=== PATIENT | female | born 1960 | race Caucasian/White ===

== ENCOUNTER 2024-12-27 10:41 | Outpatient (AMB) | payer BC, SELFPAY ==
--- NOTE | 2024-12-27 11:18 | MHC.OFFVIS ---
Intake Visit Reasons: right arm weakness Allergies No Known Allergies (No Known Allergies*) Allergy (Unverified 02/17/20 18:58) Medication List - Last Reconciled 12/27/24 by Lynne Flannery MD amlodipine 2.5 mg PO DAILY escitalopram oxalate 20 mg PO DAILY ibuprofen 800 mg PO Q8H PRN trazodone 25 mg (1/2 x 50 mg) PO DAILY HPI Comments Details: 64 years old right-handed woman with past medical history of melanoma resection from her right biceps area, hypertension, who previously had been under stress related to her daughter situation, with chronic difficulty sleeping at night because of which she has started to watch television in her bedroom, was prescribed gabapentin to improve her sleep but it has not helped, was here with complain of right arm discomfort or cramping and sometime difficulty finding the right word when she was speaking. Right arm discomfort was like a cramp or an ache and somewhat noted more if she would move her arm in a particular way. There was no associated neck pain or any significant tingling and numbness. As far as difficulty finding the right word is concerned, she has not noted any such problem at work. She worked in a bank. She has noted more when she was at home and at rest. She would find herself sometime sleepy during daytime and would tried to treated with exercise and would herself not to sleep. [facility] Medical History (Updated 12/27/24 @ 11:42 by Lynne Flannery MD) Right arm weakness Hypertension Seborrheic keratosis Chronic neck pain Mild episode of recurrent depressive disorder Generalized anxiety disorder Osteopenia DDD (degenerative disc disease), cervical Review of Systems Const Details: Constitutional:?No fever, chills, fatigue, weight loss, or night sweats. HEENT:?No headache, vision changes, hearing loss, nasal congestion, sore throat. Cardiovascular:?No chest pain, palpitations, orthopnea, PND, or leg swelling. Respiratory:?No cough, shortness of breath, wheezing, or hemoptysis. Gastrointestinal:?No nausea, vomiting, abdominal pain, diarrhea, or constipation. Genitourinary:?No dysuria, frequency, incontinence, or hematuria. Musculoskeletal:?No joint pain, stiffness, weakness, or muscle aches. Neurological:? Sometime difficulty finding the right word Psychiatric:?No anxiety, depression, mood swings, sleep disturbance, or hallucinations. Endocrine:?No heat/cold intolerance, polydipsia, polyuria, or hair/skin changes. Hematologic/Lymphatic:?No easy bruising, bleeding, or lymphadenopathy. Integumentary (Skin):?No rash, lesions, itching, or color changes. Allergic/Immunologic:?No seasonal allergies, hives, or recurrent infections. Physical Exam Neuro Other: Mental Status: Alert and oriented to person, place, and time. Normal attention. Normal spontaneous speech, fluency, and comprehension. No obvious issues with mood and memory. Affect is mildly anxious. Cranial Nerves: CN II: Visual crandall full to confrontation, visual acuity intact. CN III, IV, : Pupils equal, round, reactive to light and accommodation. Extraocular movements are normal. CN V: Facial sensation is normal. CN VII: Facial movements symmetrical. CN VIII: Hearing intact to bedside conversation is normal. CN IX, X: Palate elevates symmetrically. CN XI: Shoulder shrug and head turn symmetrical. CN XII: Tongue midline without atrophy or fasciculations. Motor: Bulk and tone normal in all extremities. No significant muscle weakness in arms and legs. No drift. Reflexes: Deep tendon reflexes 1+ and symmetric. Plantar response down-going bilaterally. Coordination: Msedwl-en-mtxr and dzkz-qn-crob testing normal. No dysmetria. Gait and Station: No obvious gait abnormality. No ataxia or instability. Extrapyramidal: Full facial expressions and blinking. No rigidity. Movements are appropriate with no tremor or abnormality. Speech: Normal; no dysarthria or tremor. Assessment & Plan Assessment & Plan (1) Poor sleep hygiene: Code(s): Z72.821 - Inadequate sleep hygiene Category: Medical (2) Anxiety disorder: Code(s): F41.9 - Anxiety disorder, unspecified Category: Medical Qualifiers: Anxiety disorder type: other anxiety disorder Qualified Code(s): F41.8 - Other specified anxiety disorders (3) Arm pain, right: Code(s): M79.601 - Pain in right arm Category: Medical (4) Insomnia: Code(s): G47.00 - Insomnia, unspecified Category: Medical Qualifiers: Insomnia type: psychophysiologic Qualified Code(s): F51.04 - Psychophysiologic insomnia (5) MCI (mild cognitive impairment): Code(s): G31.84 - Mild cognitive impairment of uncertain or unknown etiology Category: Medical Plan Impression: a: MCI causing mild word finding difficulty b: Right arm pain, probably musculoskelatal c: Anxiety disorder d: Poor sleep hygiene e: Insomnia Rec: a: Sleep hygiene b: DC gabapentin c: Try trazodone 25mg at night d: Take Escitaloprim in am e: EMG/NCS R arm f: MRI brain WO g: B12/folate/TSH Orders: Orders TSH reflex Free T4 Today G31.84 - Mild cognitive impairment of uncertain or unknown etiology NE nerve conduction velocity Today M79.601 - Pain in right arm NE electromyogram (EMG) Today M79.601 - Pain in right arm MR head/brain wo con Today G31.84 - Mild cognitive impairment of uncertain or unknown etiology Vitamin B12 and Folate Today G31.84 - Mild cognitive impairment of uncertain or unknown etiology Medications: New trazodone 25 mg (1/2 x 50 mg) PO DAILY 30 tabs 0RF Coding Level of Care Code Tele New Pt Level 5 (65042) Diagnoses Poor sleep hygiene Z72.821 Other specified anxiety disorders F41.8 Anxiety disorder type: other anxiety disorder Arm pain, right M79.601 Psychophysiological insomnia F51.04 Insomnia type: psychophysiologic MCI (mild cognitive impairment) G31.84
--- OUTSIDE RECORDS SUMMARY | 2024-12-27 11:54 | XMS_ITS ---
Author Name [facility] Organization Unknown Care Team Organization Name Specialty Phone Email Start Date End Da te [facility] [place] Owen Solo Primary Care 04/09/2022 01/19/20 24
--- OUTSIDE RECORDS SUMMARY | 2024-12-27 11:54 | XMS_ITS | Clinical Summary ---
Author Organization [facility] [employer] Address [address] [facility] [place] [address] Care Team Providers Care Gas Tender Name Role Phone Ángela Cabral MD Primary Care Provider Immunizations Name Administration Dates Next Due Shingrix Recombinant Dose 07/02/2020 Social History Tobacco Use Types Packs/Day Years Used Date Smoking Tobacco: Never Assessed Comments Unknown Sex and Gender Information Value Date Recorded Sex Assigned at Not on file Legal Sex Female 4:28 PM EST Gender Identity Not on file Sexual Orientation Not on file Plan of Treatment Health Maintenance Due Date Last Done Comments Colorectal Cancer: COLONOSCO PY Screening every 10 yrs (or Modifier) 1962 Depression: Screening Annual ly using PHQ-2/9 in Adults 18 yrs or above (or HM Modifier)([facility]) 1980 Hepatitis C Virus Infection in Adolescents and Adults: Screening (or Modifier) ([facility]) 1980 [facility] Screening Reminder: Ebony garay for all adults ([facility]) 1980 Tobacco Smoking Cessation: i n Adults excluding Women: Behavioral and Pharmacotherapy Interventions ([facility]) 1980 DTaP/Tdap/Td Vaccines ([facility]) (1 - Tdap) 1981 Cervical Cancer Screenin 1-65 yrs of age (or Modifier) 1983 Cervical Cancer Screening: P ap every 3 yrs pts age 21-65 1983 Cervical Cancer: Pap Screeni ng with Modifier timing ([facility]) 1983 Cervical Cancer: hrHPV alone or with cotesting Pap for Pts 30-65yrs screening every 5yrs ([facility]) 1983 Colorectal Cancer Screening 45 -75 Yrs (or HM Modifier) 2007 Colorectal Cancer: FLEXIBLE SIGMOIDOSCOPY Screening every 5 yrs 2007 Colorectal Cancer: Fecal Imm unochemical Test (FIT) [facility]ually [facility] 2007 Colorectal Cancer: High-sens itivity gFOBT Screening Annually [facility] 2007 Colorectal Cancer: Stool Col oguard Screening every 3 yrs 2007 Colorectal Cancer:CT Colonog elaine Screening every 5 yrs 2007 Breast Cancer: Screening Ebony ually age 50-74 yrs (or HM Modifier)([facility]) 2012 Pneumococcal Vaccination Scr eening: Patients 50+ yrs of age ([facility]) (1 of 1 - PCV) 2012 Zoster/Shingles Vaccine Seri es Screening: Adults aged 18+ yrs (or HM Modifiers)([facility]) (2 of 2) 08/27/2020 07/02/2020 COVID-19 Vaccine Screening: Initial Series and Booster Status ([facility]) ( - 2023- season) 2024 Flu Vaccination: Yearly for ages 18mos through 64 years (or Modifier)([facility]) 12/31/2024 RSV Vaccines (1 - 1-dose 75+ series) 2037 [employer] Not on file Insurance [facility] Care Teams Gas Tender Relationship Specialty Start Date End Date Ángela Cabral MD [address] [place] [address] PCP - General Internal Medicine 07/02/20
--- OUTSIDE RECORDS SUMMARY | 2024-12-27 11:54 | XMS_ITS | Encounter Summary ---
Author Organization [employer] [place] [address] Care Team Providers Care Tile Sprayer Name Role Phone Owen Solo MD Primary Care Provider Encounter Details Date Type Department Care Team (Late st Contact Info) Description 10/27/2024 Lab Requisition [facility] - Main Lab [address] [facility] [place] [phone] Owen Solo MD [address] [place], [place] [id number] Other hemoglobinopathies (CMS/HCC V24) Social History Tobacco Use Types Packs/Day Years Used Date Smoking Tobacco: Never Smokeless Tobacco: Never Alcohol Use Standard Drinks/Week Comments Yes 0 (1 standard drink = 0.6 oz pur e alcohol) Comments No Sex and Gender Information Value Date Recorded Sex Assigned at Not on file Legal Sex Female 4:25 AM EST Gender Identity Not on file Sexual Orientation Not on file documented as of this encounter Plan of Treatment Not on file documented as of this encounter Procedures Procedure Name Priority Date/Time Associated Diagnosis Comments IRON AND TIBC Routine 10/27/2024 4:20 PM EDT Other hemoglobinopathies (CMS/HCC V24) FERRITIN Routine 10/27/2024 4:20 PM EDT Other hemoglobinopathies (CMS/HCC V24) documented in this encounter Results * Ferritin (10/27/2024 4:20 PM EDT) Ferritin 67 8 - 252 ng/mL LAB CHEMISTRY METHOD 10/27/2024 5:41 PM EDT [facility] Blood Venous blood specimen / Unknown 10/27/2024 4:20 PM EDT 10/27/2024 4:59 PM EDT us Owen Solo MD LAB BLOOD ORDERABLES Final Res ult [facility] [address] [place] [address], [place] [phone] * Iron and TIBC (10/27/2024 4:20 PM EDT) Iron 99 40 - 150 mcg/dL LAB CHEMISTRY METHOD 10/27/2024 5:41 PM EDT [facility] TIBC 403 250 - 450 mcg/dL LAB CHEMISTRY METHOD 10/27/2024 5:41 PM EDT [facility] Iron Saturation 25 15 - 50 % LAB CHEMISTRY METHOD 10/27/2024 5:41 PM EDT [facility] Blood Venous blood specimen / Unknown 10/27/2024 4:20 PM EDT 10/27/2024 4:59 PM EDT us Owen Solo MD LAB BLOOD ORDERABLES Final Res ult [facility] [address] [place] [address], [place] [phone] documented in this encounter Visit Diagnoses Diagnosis Other hemoglobinopathies (CMS/HCC V24) Other hemoglobinopathies documented in this encounter Care Teams Tile Sprayer Relationship Specialty Start Date End Date Owen Solo MD [address] [place] [id number] PCP - General Internal Medicine 06/16/20 documented as of this encounter
== END 2024-12-27 12:51 | disposition home or self-care (01) ==
LOC: HO.HSM 10:41
PROVIDERS: PCP Internal Medicine; Visit Provider Psychiatry & Neurology Neurology
DX: F41.8 Other specified anxiety disorders (principal); M79.601 Pain in right arm; F51.04 Psychophysiologic insomnia; G31.84 Mild cognitive impairment of uncertain or unknown etiology
CPT/HCPCS: 99204

== ENCOUNTER 2024-12-27 10:41 | Outpatient (REF) | payer BC, SELFPAY ==
[2024-12-27 13:18] LABS: Folate 15.1 ng/mL (> or = 4.0); Vitamin B12 745 pg/mL (200-900)
== END 2024-12-27 10:42 | disposition home or self-care (01) ==
LOC: HO.LAB 10:41
PROVIDERS: PCP Internal Medicine; Visit Provider Psychiatry & Neurology Neurology
DX: M79.601 Pain in right arm (principal); G31.84 Mild cognitive impairment of uncertain or unknown etiology; F41.8 Other specified anxiety disorders; F51.04 Psychophysiologic insomnia; I10 Essential (primary) hypertension; Z79.899 Other long term (current) drug therapy
CPT/HCPCS: 36415; 82607; 82746; 84443

== ENCOUNTER 2025-01-18 10:06 | Outpatient (REF) | payer BC, SELFPAY ==
--- NOTE | ~2025-01-18 | MR_ITS ---
EXAMINATION: MR BRAIN WITHOUT CONTRAST CLINICAL INFORMATION: Mild cognitive impairment of uncertain etiology. COMPARISON: None available. TECHNIQUE: MRI of the brain was obtained using routine sequences without contrast. FINDINGS: No restricted diffusion. Bilateral, symmetric, patchy, hyperintense T2 FLAIR signal center within the basal ganglia/putamen. No associated susceptibility or restricted diffusion. Patchy hyperintense T2 FLAIR signal without susceptibility or restriction centered in the landry. Ram-white matter differentiation is normal. No acute intracranial hemorrhage, mass effect, midline shift, hydrocephalus or herniation. No signal abnormality or volume loss in the hippocampi. Sellar/suprasellar region is normal. Craniocervical junction demonstrates normal position of the cerebellar tonsils. Flow-void signal within the main cerebral vessels is normal. Hyperintense T2 FLAIR signal in the left mastoid air cells. MR/MR head/brain wo con IMPRESSION: Concerning for neurodegenerative disorders versus lymphoma versus Karlos's disease versus metabolic encephalopathy and is likely poisoning Electronically signed by: Sabino Montano MD 01/18/2025 11:16 AM EDT
--- OUTSIDE RECORDS SUMMARY | 2025-01-18 11:20 | XMS_ITS | Clinical Summary ---
Author Organization [facility] [employer] Address [address] [facility] [place] [address] Care Team Providers Care Seo Expert Name Role Phone Ángela Cabral MD Primary [...] Adults 18 yrs or above (or HM Modifier)([facility]) 1980 Hepatitis C Virus Infection in Adolescents and Adults: Screening (or Modifier) ([facility]) 1980 [facility] Screening Reminder: Ebony garay for all adults ([facility]) 1980 Tobacco Smoking Cessation: i n Adults excluding Women: Behavioral and Pharmacotherapy Interventions ([facility]) 1980 DTaP/Tdap/Td Vaccines ([facility]) (1 - Tdap) 1981 Cervical Cancer Screenin 1-65 yrs of age (or Modifier) 1983 Cervical Cancer Screening: P ap every 3 yrs pts age 21-65 1983 Cervical Cancer: Pap Screeni ng with Modifier timing ([facility]) 1983 Cervical Cancer: hrHPV alone or with cotesting Pap for Pts 30-65yrs screening every 5yrs ([facility]) 1983 Colorectal Cancer Screening 45 -75 Yrs (or HM Modifier) 2007 Colorectal Cancer: FLEXIBLE SIGMOIDOSCOPY Screening every 5 yrs 2007 Colorectal Cancer: Fecal Imm unochemical Test (FIT) [facility]ually [facility] 2007 Colorectal Cancer: High-sens itivity gFOBT Screening Annually [facility] 2007 Colorectal Cancer: Stool Col oguard Screening every 3 yrs 2007 Colorectal Cancer:CT Colonog elaine Screening every 5 yrs 2007 Breast Cancer: Screening Ebony ually age 50-74 yrs (or HM Modifier)([facility]) 2012 Pneumococcal Vaccination Scr eening: Patients 50+ yrs of age ([facility]) (1 of 1 - PCV) 2012 Zoster/Shingles Vaccine Seri es Screening: Adults aged 18+ yrs (or HM Modifiers)([facility]) (2 of 2) 08/27/2020 07/02/2020 COVID-19 Vaccine Screening: Initial Series and Booster Status ([facility]) ( - 2023- season) 2024 Flu Vaccination: Yearly for ages 18mos through 64 years (or Modifier)([facility]) 12/31/2024 RSV Vaccines (1 - 1-dose 75+ series) 2037 [employer] Not on file Insurance [facility] Care Teams Seo Expert Relationship Specialty Start Date End Date Ángela Cabral MD [address] [place] [address] PCP - General Internal Medicine 07/02/20
--- OUTSIDE RECORDS SUMMARY | 2025-01-18 11:20 | XMS_ITS | Encounter Summary ---
Author Organization [place] [address] Care Team Providers Care Operator And Truck Driver Name Role Phone Owen Solo MD Primary Care Provider [phone] Encounter Details Date Type Department Care Team (Late st Contact Info) Description 10/27/2024 Lab Requisition [facility] - Main Lab [address] [facility] [place] [place] [phone] Owen Solo MD [address] [place], [place] [phone] Other hemoglobinopathies (CMS/HCC V24) Social History Tobacco [...] LAB CHEMISTRY METHOD 10/27/2024 5:41 PM EDT [facility] Blood Venous blood specimen / Unknown 10/27/2024 4:20 PM EDT 10/27/2024 4:59 PM EDT us Owen Solo MD LAB BLOOD ORDERABLES Final Res ult [facility] [address] [place] [address], [place] [phone] * Iron and TIBC (10/27/2024 4:20 PM EDT) Iron 99 40 - 150 mcg/dL LAB CHEMISTRY METHOD 10/27/2024 5:41 PM EDT [facility] TIBC 403 250 - 450 mcg/dL LAB CHEMISTRY METHOD 10/27/2024 5:41 PM EDT [facility] Iron Saturation 25 15 - 50 % LAB CHEMISTRY METHOD 10/27/2024 5:41 PM EDT [facility] Blood Venous blood specimen / Unknown 10/27/2024 4:20 PM EDT 10/27/2024 4:59 PM EDT us Owen Solo MD LAB BLOOD ORDERABLES Final Res ult [facility] [address] [place] [address], [place] [phone] documented in this encounter Visit Diagnoses Diagnosis Other hemoglobinopathies (CMS/HCC V24) Other hemoglobinopathies documented in this encounter Care Teams Operator And Truck Driver Relationship Specialty Start Date End Date Owen Solo MD [address] [place] [id number] PCP - General Internal Medicine 06/16/20 documented as of this encounter
== END 2025-01-18 10:07 | disposition home or self-care (01) ==
LOC: HO.MRI 10:06
PROVIDERS: PCP Internal Medicine; Visit Provider Psychiatry & Neurology Neurology
DX: G31.84 Mild cognitive impairment of uncertain or unknown etiology (principal)
CPT/HCPCS: 70551

== ENCOUNTER → 2025-01-18 10:14 | Outpatient (BNV) | payer BC, SELFPAY | PROVIDERS: PCP Internal Medicine; Visit Provider Radiology Diagnostic Radiology | DX: G31.84 Mild cognitive impairment of uncertain or unknown etiology (principal) | CPT/HCPCS: 70551 ==

== ENCOUNTER 2025-02-24 08:43 | Outpatient (AMB) | payer BC, SELFPAY ==
--- NOTE | 2025-02-24 08:45 | A.OFFVIS_ITS ---
Intake Visit Reasons: after MRI/NCV Allergies No Known Allergies (No Known Allergies*) Allergy (Unverified 02/17/20 18:58) HPI Comments Details: The patient is a 64-year-old female presenting with cognitive difficulties and abnormal brain MRI findings. She reports insomnia and uses television as a sleep aid. There is a history of essential hypertension and reported melanoma. She has been under significant stress related to her daughter's situation and sometimes experiences difficulty in continuing sentences, indicative of mild cognitive issues. She reports a family history of MS in her sisters. Her brain MRI has revealed abnormal white matter changes, raising concerns regarding potential exposure to toxins or anoxia. However, no such historical exposure is confirmed after evaluation. Thorough exploration of potential exposure to carbon monoxide and heavy metals returned no relevant history. The etiology of these abnormalities remains undetermined, requiring ongoing investigation and monitoring. [facility] Medical History (Updated 02/24/25 @ 08:50 by Lynne Flannery MD) Right arm weakness Hypertension Seborrheic keratosis Chronic neck pain Mild episode of recurrent depressive disorder Generalized anxiety disorder Osteopenia DDD (degenerative disc disease), cervical Review of Systems Const Details: - General: Denies recent severe illness or ICU admission. - Cardiovascular: Reports history of high blood pressure. - Neurologic: Reports cognitive difficulties, difficulty finishing sentences, denies any major motor deficits, headaches, or seizures. Denies binge drinking, smoking, and any recent notable neurological infections. - Psychological: Reports chronic stress related to family situation, denies history of self-harm or poisoning attempts. Physical Exam Neuro Other: Mental Status: Alert and oriented to person, place, and time. Normal attention. Normal spontaneous speech, fluency, and comprehension. No obvious issues with mood and memory. Affect is appropriate. Cranial Nerves: CN II: Visual crandall full to confrontation, visual acuity intact. CN III, IV, : Pupils equal, round, reactive to light and accommodation. Extraocular movements are normal. CN V: Facial sensation is normal. CN VII: Facial movements symmetrical. CN VIII: Hearing intact to bedside conversation is normal. CN IX, X: Palate elevates symmetrically. CN XI: Shoulder shrug and head turn symmetrical. CN XII: Tongue midline without atrophy or fasciculations. Motor: Bulk and tone normal in all extremities. No significant muscle weakness in arms and legs. No drift. Reflexes: Deep tendon reflexes 2+ and symmetric. Plantar response down-going bilaterally. Coordination: Evfzmc-vv-wwfq and kmpw-ce-ifng testing normal. No dysmetria. Gait and Station: No obvious gait abnormality. No ataxia or instability. Extrapyramidal: Full facial expressions and blinking. No rigidity. Movements are appropriate with no tremor or abnormality. Speech: Normal; no dysarthria or tremor. Assessment & Plan Assessment & Plan (1) Encephalopathy: Comment: MRI brain WO at [facility] in Jan 2025: significant b/l putamenal hyperintensity, and pontine hyperintensity Code(s): G93.40 - Encephalopathy, unspecified Category: Medical Plan 64 years old woman with no significant past medical history other than having some stress and life but in particular no history of any significant exposure to toxin, alcohol, or a poison such as carbon monoxide, and also without history of any serious illness requiring ICU admission or serious viral illness, came to see me for rather mild cognitive difficulties and right arm numbness. Her MRI of brain is quite remarkable revealing significant FLAIR hyperintensities in landry and bilateral putaminal area. This kind of pattern is usually seen with exposure to toxins or anoxia. Potential there some other causes and I am checking some of them. I am not sure if I would be able to find the exact cause. Otherwise, physically speaking, she was doing well and my advice was to continue with life. No particular medicine was prescribed at this time. Orders: Orders Heavy Metals Screen 24H Urine Today G93.40 - Encephalopathy, unspecified Ceruloplasmin Today G93.40 - Encephalopathy, unspecified Copper, plasma Today G93.40 - Encephalopathy, unspecified Copper, 24hr Urine Today G93.40 - Encephalopathy, unspecified Coding Level of Care Code Est Pt Level 5 (18252) Diagnoses Encephalopathy G93.40
--- OUTSIDE RECORDS SUMMARY | 2025-02-24 09:18 | XMS_ITS | Encounter Summary ---
Author Organization [employer] [place] [address] Care Team Providers Care Website Programmer Name Role Phone Owen Solo MD Primary Care Provider [phone] Encounter Details Date Type Department Care Team (Late st Contact Info) Description 10/27/2024 Lab Requisition [facility] - Main Lab [address] [facility] [place] [phone] Owen Solo MD [address] [place], [place] [phone] Other hemoglobinopathies (CMS/HCC V24) Social History Tobacco [...] LAB CHEMISTRY METHOD 10/27/2024 5:41 PM EDT [facility] Blood Venous blood specimen / Unknown 10/27/2024 4:20 PM EDT 10/27/2024 4:59 PM EDT us Owen Solo MD LAB BLOOD ORDERABLES Final Res ult [facility] [address] [place] [address], [place] [phone] * Iron and TIBC (10/27/2024 4:20 PM EDT) Iron 99 40 - 150 mcg/dL LAB CHEMISTRY METHOD 10/27/2024 5:41 PM EDT [facility] TIBC 403 250 - 450 mcg/dL LAB CHEMISTRY METHOD 10/27/2024 5:41 PM EDT [facility] Iron Saturation 25 15 - 50 % LAB CHEMISTRY METHOD 10/27/2024 5:41 PM EDT [facility] Blood Venous blood specimen / Unknown 10/27/2024 4:20 PM EDT 10/27/2024 4:59 PM EDT us Owen Solo MD LAB BLOOD ORDERABLES Final Res ult [facility] [address] [place] [address], [place] [phone] documented in this encounter Visit Diagnoses Diagnosis Other hemoglobinopathies (CMS/HCC V24) Other hemoglobinopathies documented in this encounter Care Teams Website Programmer Relationship Specialty Start Date End Date Owen Solo MD [address] [place] [id number] PCP - General Internal Medicine 06/16/20 documented as of this encounter
--- OUTSIDE RECORDS SUMMARY | 2025-02-24 09:18 | XMS_ITS | Clinical Summary ---
Author Organization [address] [facility] Address [address] [place] [address] Phone Care Team Providers Care Top Knitter Name Role Phone Owen Solo MD Primary Care Provider [phone] Allergies No known active allergies Medications CALCIUM-MAGNESIU M-ZINC ORAL Take by mouth daily. Active MAGNESIUM ORAL Take by mouth. Active escitalopram (LEXAPRO) 20 mg tablet TAKE 1 TABLET (20 MG TOTAL) BY MOUTH ONE TIME EACH DAY 90 tablet 1 10/12/2024 Active amLODIPine (NORVASC) 2.5 mg tablet Take 1 tablet (2.5 mg total) by mouth 1 (one) time each day. 90 tablet 1 10/12/2024 Active gabapentin (NEURONTIN) 600 mg tablet TAKE 1 TABLET BY MOUTH AT BEDTIME. 90 tablet 12/08/2024 Active ibuprofen (ADVIL,MOTRIN) 800 mg tablet TAKE 1 TABLET BY MOUTH EVERY 8 HOURS NEEDED FOR PAIN FOR UP TO 60 DAYS. 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 (CMS/HCC V24) 11/28/2020 Chronic neck pain 02/08/2019 DDD (degenerative disc disease), cervical 2018 Seborrheic keratosis 03/25/2017 HTN (hypertension) 09/06/2014 Encounters Date Type Department Care Team Description 12/20/2024 Telephone Internal Medicine - [address] [phone] Owen Solo MD 12/17/2024 3:15 PM EDT Office Visit Internal Medicine - [address] [phone] Waqar Davila NP Right arm weakness (Primary Dx) 12/15/2024 Telephone Internal Medicine - [address] [phone] Owen Solo MD from Last 3 Months Immunizations Name Administration Dates Next Due Influenza Quadravalent, MDCK , 0.5ml, preservative free (Flucelvax) 6mo and older 02/08/2019 Influenza Quadravalent, MDCK , 0.5ml, with preservative (Flucelvax) 6mo and older 03/25/2017 Influenza trivalent, 0.5mL, preservative free (Fluarix; FluLaval; Fluzone) ages 6mo and older (Afluria) 3 years and older 03/09/2024 Influenza, Unspecified 07/02/2023,04/17/2022 Tdap Tetanus diptheria acell ular pertussis (Boostrix; Adacel) 7yo and older 11/27/2015 Zoster recombinant (Shingrix) 19yo and older ,02/18/2020 Surgical History Surgery Date Site/Laterality Comments KNEE ARTHROSCOPY W/ DEBRIDEMENT 2010 Left PROCEDURE: AK ARTHRS KNEE DEBRIDEMENT/SHAVING ARTCLR CRTLG; COMMENT: Dr Silvestre Doctor TUBAL LIGATION PROCEDURE: HISTORICAL TUBAL LIGATION COLONOSCOPY 04/11/2016 PROCEDURE: HISTORICAL COLONOSCOPY; COMMENT: diverticulosis; otherwise neg/oncomplete to 35 cm. Medical History Medical History Date Comments Uterine polyp DX:Uterine polyp History of colonoscopy 04/11/2016 DX:Histor y of colonoscopy; COMMENT: Difficult/incomplete colonoscopy 04/11/2016 related to diverticulosis and tortuosity in the sigmoid colon. Consider FIT testing going forward. HTN (hypertension) 09/06/2014 DX:HTN (hyper tension) Melanoma in situ of left upp er arm (CMS/HCC V24, CMS/HCC V28) 04/22/2019 DX:Melanoma in situ of left upper arm (HCC); COMMENT: Diagnosed 03/2019. Had biopsy in March. Having further surgery for margins on 05/05/19 Family History Medical History Relation Name Comments Breast cancer Neg Hx Relation Name Status Comments Brother Alive HTN Daughter Alive born ', PhD s [employer] in exercise science Father (Age 47) accidental gunshot, had asbestos related cancer abd Mother Alive HTN, 1ppd, oste oporosis Sister Alive x2, with HTN Son Alive born ', Fermin rangel, Pharmacist Social History Tobacco Use Types Packs/Day Years Used Date Smoking Tobacco: Never Smokeless Tobacco: Never Tobacco Cessation:Counseling Given: Not Answered Alcohol Use Standard Drinks/Week Comments Yes 0 (1 standard drink = 0.6 oz pur e alcohol) Comments No Sex and Gender Information Value Date Recorded Sex Assigned at Not on file Legal Sex Female 4:25 AM EST Gender Identity Not on file Sexual Orientation Not on file Obstetrics History Last Filed Vital Signs Vital Sign Reading Time Taken Comments Blood Pressure 130/80 12/17/2024 3:20 PM EDT aut o Pulse 63 12/17/2024 3:20 PM EDT Temperature 36.7 C (98 F) 10/27/2024 3:38 PM EDT Respiratory Rate - - Oxygen Saturation 98% 10/27/2024 3:38 PM EDT Inhaled Oxygen Concentration - - Weight 57.5 kg (126 lb 12.8 oz) 12/17/2024 3:20 PM EDT Height 157.5 cm (5' 2 ) 12/17/2024 3:2 0 PM EDT Body Mass Index 23.19 12/17/2024 3:20 PM EDT Plan of Treatment Health Maintenance Due Date Last Done Comments COVID-19 Vaccine (#1) 1967 Pneumococcal Vaccine: 50+ Years (1 of 2 - PCV) 1981 Cervical Cancer Screening: Pap Smear 10/19/2019 10/18/2016 RSV Immunization Adult Patients (1 - Risk 60-74 years 1-dose series) 2022 HIV Screening 05/05/2022 Social Influencers of Health Screening 05/05/2022 Breast Cancer Screening 04/19/2024 04/19/2022, 02/09 Depression Screening 06/02/2024 Influenza Vaccine (#1) 2025 , 07/02/2023, 04/17/2022, Additional history exists Hypertension/CHF/CAD Annual BMP Blood Test 10/04/2025 10/04/2024, 03/09/2024, 03/09/2024 DTaP,Tdap,and Td Vaccines (2 - Td or Tdap) 11/26/2025 11/27/2015 Colorectal Cancer Screening: Colonoscopy 03/19/2026 03/19/2021 Cholesterol Screening (Lipid Panel) 10/06/2029 10/06/2024, 10/04/2024, 03/09/2024, Additional history exists Hepatitis C Screening Completed 01/18/2016 Zoster Vaccines Completed 07/02/2020, 02/18/2020 HIB Vaccines Aged Out No longer eligi ble based on patient's age to complete this topic HPV Vaccines Aged Out No longer eligi ble based on patient's age to complete this topic Hepatitis A Vaccines Aged Out No long er eligible based on patient's age to complete this topic Hepatitis B Vaccines Aged Out No long er eligible based on patient's age to complete this topic IPV Vaccines Aged Out No longer eligi ble based on patient's age to complete this topic MMR Vaccines Aged Out No longer eligi ble based on patient's age to complete this topic Meningococcal ACWY Vaccine Aged Out N o longer eligible based on patient's age to complete this topic Meningococcal B Vaccine Aged Out No l onger eligible based on patient's age to complete this topic RSV Immunization Patients Under 20 months Aged Out No longer eligible based on patient's age to complete this topic Varicella Vaccines Aged Out No longer eligible based on patient's age to complete this topic Procedures Procedure Name Priority Date/Time Associated Diagnosis Comments EXTERNAL MRI REPORT 01/18/2025 BORRELIA BURGDORFERI ANTIBODY Routine 12/17/2024 3:50 PM EDT Deficiencies of limbs VITAMIN B12 Routine 12/17/2024 3:50 PM EDT Right arm weakness LIPID PANEL WITH REFLEX TO DIRECT LDL Routine 10/06/2024 12:54 PM EDT Elevated cholesterol BASIC METABOLIC PANEL Routine 10/04/2024 3:41 PM EDT Primary hypertension SCREENING MAMMOGRAPHY BI 2-VIEW BREAST INC CAD Routine 04/19/2022 11:57 AM EST Encounter for screening mammogram for malignant neoplasm of breast COLONOSCOPY Routine 03/19/2021 PAP SMEAR Routine 10/18/2016 HEPATITIS C SCREENING Routine 01/18/2016 from Last 3 Months or Most Recently Relevant to Health Maintenance Results * External MRI Report (01/18/2025) Anatomical Region Laterality Modality Magnetic Resonan ce us Provider [facility] MRI PROCEDURES Final Result * Borrelia burgdorferi antibody (12/17/2024 3:50 PM EDT) Pathologist [facility] [place] Lyme Ab Negative Negative LAB CHEMISTRY METHOD 12/18/2024 10:42 AM EDT [facility] Comment: No laboratory evidence of infection with B. burgdorferi (Lyme disease). Negative results may occur in patients recently infected (<=14 days) with B. burgdorferi. If recent infection is suspected, repeat testing on a new sample collected in 7- 14 days is recommended. Blood Venous blood specimen / Unknown Venipuncture / Unknown 12/17/2024 3:50 PM EDT 12/17/2024 3:50 PM EDT Waqar Davila NP LAB BLOOD ORDERABLES Final Res ult [facility] [address] [place] [address], * Vitamin B12 (12/17/2024 3:50 PM EDT) Pathologist [facility] [place] Vitamin B-12 599 250 - 900 pcg/mL LAB CHEMISTRY METHOD 12/17/2024 7:56 PM EDT [facility] Blood Venous blood specimen / Unknown Venipuncture / Unknown 12/17/2024 3:50 PM EDT 12/17/2024 3:50 PM EDT Waqar Davila NP LAB BLOOD ORDERABLES Final Res ult [facility] [address] [place] [address], [place] [phone] * (ABNORMAL) Lipid panel with reflex to direct LDL (10/06/2024 12:54 PM EDT) Cholesterol 253(H) 0 - 200 mg/dL LAB CHEMISTRY METHOD 10/06/2024 6:08 PM EDT [facility] Triglycerides 60 0 - 150 mg/dL LAB CHEMISTRY METHOD 10/06/2024 6:08 PM EDT [facility] HDL 94 >=40 mg/dL LAB CHEMISTRY METHOD 10/06/2024 6:08 PM EDT [facility] LDL Calculated 147(H) 0 - 100 mg/dL LAB CHEMISTRY METHOD 10/06/2024 6:08 PM EDT [facility] VLDL Cholesterol Collin 12 mg/dL LAB CHEMISTRY METHOD 10/06/2024 6:08 PM EDT [facility] Non HDL Chol. (LDL+VLDL) 159(H) <145 mg/dL LAB CHEMISTRY METHOD 10/06/2024 6:08 PM EDT [facility] Chol/HDL Ratio 2.7 0.0 - 4.4 LAB CHEMISTRY METHOD 10/06/2024 6:08 PM EDT [facility] Blood Venous blood specimen / Unknown Venipuncture / Unknown 10/06/2024 12:54 PM EDT 10/06/2024 12:54 PM EDT Owen Solo MD LAB BLOOD ORDERABLES Final Res ult [facility] [address] [place] [address], [place] [phone] * Basic metabolic panel (10/04/2024 3:41 PM EDT) Sodium 142 133 - 145 mmol/L LAB CHEMISTRY METHOD 10/04/2024 6:27 PM [facility] Potassium 4.5 3.5 - 5.5 mmol/L LAB CHEMISTRY METHOD 10/04/2024 6:27 PM [facility] Chloride 105 96 - 110 mmol/L LAB CHEMISTRY METHOD 10/04/2024 6:27 PM [facility] CO2 32 21 - 32 mmol/L LAB CHEMISTRY METHOD 10/04/2024 6:27 PM [facility] Anion Gap 5 3 - 11 LAB CHEMISTRY METHOD 10/04/2024 6:27 PM [facility] Glucose 78 70 - 100 mg/dL LAB CHEMISTRY METHOD 10/04/2024 6:27 PM [facility] BUN 17 5 - 25 mg/dL LAB CHEMISTRY METHOD 10/04/2024 6:27 PM [facility] Creatinine 0.83 0.50 - 1.10 mg/dL LAB CHEMISTRY METHOD 10/04/2024 6:27 PM [facility] eGFR 80 >=60 mL/min/1. 73m2 LAB CHEMISTRY METHOD 10/04/2024 6:27 PM [facility] Comment:Calculation based on the Chronic Kidney Disease Epidemiology Collaboration (CKD-EPI) equation refit without adjustment for race. BUN/Creatinine Ratio 20.5 LAB CHEMISTRY METHOD 10/04/2024 6:27 PM [facility] Calcium 9.5 8.5 - 10.5 mg/dL LAB CHEMISTRY METHOD 10/04/2024 6:27 PM [facility] Blood Venous blood specimen / Unknown Venipuncture / Unknown 10/04/2024 3:41 PM EDT 10/04/2024 3:41 PM EDT Owen Solo MD LAB BLOOD ORDERABLES Final Res ult [facility] [address] [place] [address], [place] [phone] * SCREENING MAMMOGRAPHY BI 2-VIEW BREAST INC CAD (04/19/2022 11:57 AM EST) Anatomical Region Laterality Modality Radiographic Una ging 02/09/2021 7:58 AM EDT Narrative 04/19/2022 5:15 PM EST This is a summary report. The complete report is available in the patient's medical record. If you cannot access the medical record, please contact the sending organization for a detailed fax or copy. Bilateral digital mammogram History: Screening. Full field digital 2-D and 3-D mammography of both breasts, reviewed with CAD and compared to previous mammograms dating back to 01/01/2018 with most recent of 02/09/2021. The breasts are heterogeneously dense without suspicious calcifications, masses or areas of architectural distortion. IMPRESSION: No mammographic evidence of malignancy. BI-RADS 1-Negative Procedure Note Lanie Bhakta MD - 07/07/2023 This is a summary report. The complete report is available in thepatient's medical record. If you cannot access the medical record, pleasecontact the sending organization for a detailed fax or copy. Bilateral digital mammogram History: Screening. Full field digital 2-D and 3-D mammography of both breasts, reviewed withCAD and compared to previous mammograms dating back to 01/01/2018 with most recent of02/09/2021. The breasts are heterogeneously dense without suspicious calcifications, masses or areasof architectural distortion. IMPRESSION: No mammographic evidence of malignancy. BI-RADS 1-Negative Kanika Candelario MD IMG XR PROCEDURES Final Re sult * Colonoscopy (03/19/2021) Colonoscopy completed Anatomical Region Laterality Modality Other Historical Provider HEALTH MAINTENANCE Final Result * Pap Smear (10/18/2016) Pap smear No Interpretation , Abstracted Historical Provider HEALTH MAINTENANCE Final Result * Hepatitis C Screening (01/18/2016) Hepatitis C Screening negative Historical Provider HEALTH MAINTENANCE Final Result from Last 3 Months or Most Recently Relevant to Health Maintenance [place] [address] [address] [place] [address] Care Teams Top Knitter Relationship Specialty Start Date End Date Owen Solo MD [address] [place] [id number] PCP - General Internal Medicine 06/16/20
--- OUTSIDE RECORDS SUMMARY | 2025-02-24 09:18 | XMS_ITS | Clinical Summary ---
Author Organization [facility] [employer] [facility] Address [address] [facility] [place] [address] Care Team Providers Care Fighting Vehicle Infantryman Name Role Phone Ángela Cabral MD Primary Care Provider Immunizations Immunization Administration Dates Next Due Shingrix Recombinant Dose [...] Adults 18 yrs or above (or HM Modifier)([facility]) 1980 Hepatitis C Virus Infection in Adolescents and Adults: Screening (or Modifier) ([facility]) 1980 [facility] Screening Reminder: Ebony garay for all adults ([facility]) 1980 Tobacco Smoking Cessation: i n Adults excluding Women: Behavioral and Pharmacotherapy Interventions ([facility]) 1980 DTaP/Tdap/Td Vaccines ([facility]) (1 - Tdap) 1981 Cervical Cancer Screenin 1-65 yrs of age (or Modifier) 1983 Cervical Cancer Screening: P ap every 3 yrs pts age 21-65 1983 Cervical Cancer: Pap Screeni ng with Modifier timing ([facility]) 1983 Cervical Cancer: hrHPV alone or with cotesting Pap for Pts 30-65yrs screening every 5yrs ([facility]) 1983 Colorectal Cancer Screening 45 -75 Yrs (or HM Modifier) 2007 Colorectal Cancer: FLEXIBLE SIGMOIDOSCOPY Screening every 5 yrs 2007 Colorectal Cancer: Fecal Imm unochemical Test (FIT) Annually [facility] 2007 Colorectal Cancer: High-sens itivity gFOBT Screening Annually [facility] 2007 Colorectal Cancer: Stool Col oguard Screening every 3 yrs 2007 Colorectal Cancer:CT Colonog elaine Screening every 5 yrs 2007 Breast Cancer: Screening Ebony ually age 50-74 yrs (or HM Modifier)([facility]) 2012 Pneumococcal Vaccination Scr eening: Patients 50+ yrs of age ([facility]) (1 of 1 - PCV) 2012 Zoster/Shingles Vaccine Seri es Screening: Adults aged 18+ yrs (or HM Modifiers)([facility]) (2 of 2) 08/27/2020 07/02/2020 Flu Vaccination: Yearly for ages 18mos through 64 years (or Modifier)([facility]) 12/31/2024 COVID-19 Vaccine Screening: Initial Series and Booster Status ([facility]) ( - 2023-25 season) 2025 RSV Vaccines (1 - 1-dose 75+ series) 2037 [employer] Not on file Insurance [facility] Care Teams Fighting Vehicle Infantryman Relationship Specialty Start Date End Date Ángela Cabral MD [address] [place] [address] PCP - General Internal Medicine 07/02/20
== END 2025-02-24 09:05 | disposition home or self-care (01) ==
LOC: HO.HSM 08:44
PROVIDERS: PCP Internal Medicine; Visit Provider Psychiatry & Neurology Neurology
DX: G93.40 Encephalopathy, unspecified (principal)
CPT/HCPCS: 99214

== ENCOUNTER 2025-02-24 08:43 | Outpatient (REF) | payer BC, SELFPAY ==
[2025-02-27 11:34] LABS: Copper, plasma 115 mcg/dL (70-175)
== END 2025-02-24 08:44 | disposition home or self-care (01) ==
LOC: HO.LAB 08:43
PROVIDERS: PCP Internal Medicine; Visit Provider Psychiatry & Neurology Neurology
DX: G93.40 Encephalopathy, unspecified (principal)
CPT/HCPCS: 36415; 82390; 82525